=== PATIENT | female | born 1965 | race African-American/Black ===

== ENCOUNTER 2023-01-10 10:29 | Outpatient (CLI) | payer BC | END 2023-01-10 10:30 | disposition home or self-care (01) | LOC: CSHMRI 10:29 | PROVIDERS: ATTEND Neurological Surgery | DX: M48.062 Spinal stenosis, lumbar region with neurogenic claudication (principal); M47.817 Spondylosis without myelopathy or radiculopathy, lumbosacral region | CPT/HCPCS: 72148 ==